=== PATIENT | female | born 1940 | race Caucasian/White ===

== ENCOUNTER 2017-06-06 16:36 | Emergency (ER) | payer MEDICARE, OTHER ==
[2015-12-06 15:19] VITALS: BMI 27.3
[~2017-06-06 16:36] MED LIST: BAYER CHEWABLE81 MG PO; BRILINTA90 MG PO; ESTROPIPATE0.75 MG PO; FISH OIL 1,0001 CA1 PO; MULTIPLE VITAMI1 TA1 PO; NORVASC5 MG PO; OCUVITE TABLET1 TA1 PO; PRAVASTATIN SOD10 MG PO; PRILOSEC10 MG PO; PROBIOTIC250 MG PO
[2017-06-06 17:13] LABS: BASOPHILS 0.3 % (0-2); EOSINOPHILS 1.5 % (0-7); HEMATOCRIT 37.5 % (36.0-48.0); HEMOGLOBIN 12.2 g/dL (12-16); IMMATURE GRANULOCYTES 0.2 % (0-5); MCH 29.5 pg (26.0-34.0); MCHC 32.5 g/dL (31.0-37.0); MCV 90.8 fL (80.0-100.0); MEAN PLATELET VOLUME 9.4 fL (7.4-10.4); MONOCYTES 8.7 % (2-11); NEUTROPHILS 58.3 % (40-80); PLATELET COUNT 204 10x3/uL (130-400); RBC 4.13 10x6/uL (4.00-5.40); WBC 5.8 10x3/uL (4.8-10.8)
[2017-06-06 17:41] LABS: ALBUMIN 3.5 g/dL (3.4-5.0); ALKALINE PHOSPHATASE 42 U/L (46-116); ALT (SGPT) 21 U/L (10-68); BILIRUBIN - TOTAL 0.42 mg/dL (0.2-1.3); CALC OSMOLALITY 275 mosm/kg (275-300); CALCIUM 9.1 mg/dL (8.5-10.1); CHLORIDE - SERUM 103 mmol/L (98-107); GLUCOSE 101 mg/dL (74-106); POTASSIUM - SERUM 3.9 mmol/L (3.5-5.1); PROTEIN - SERUM 7.3 g/dL (6.4-8.2); SODIUM 138 mmol/L (136-145); UREA NITROGEN 13 mg/dL (7-18); eGFR NON AFRICAN AMERICAN 57 mL/min (90-120)
[2017-06-06 17:52] LABS: CHOL - HDL RATIO 2.1 ratio (2.3-4.1); CHOLESTEROL, TOTAL 214 mg/dL (0-200); CKMB 1.3 U/L (0.0-3.6); CREATINE KINASE 122 UL (21-215); HDL CHOLESTEROL 101 mg/dL (32-96); LDL CHOLESTEROL 93 mg/dL (0-100); LDL-HDL RATIO 0.9 ratio (1.5-3.5); TRIGLYCERIDE 103 mg/dL (30-200)
[2017-06-06 17:57] LABS: TROPONIN-I < 0.017 ng/mL (0.000-0.060)
== END 2017-06-06 19:23 | disposition home or self-care (01) ==
LOC: D.ER 16:36
PROVIDERS: Family Medicine
DX: R07.89 Other chest pain (principal)

== ENCOUNTER 2018-01-12 11:23 | Emergency (ER) | payer MEDICARE, OTHER ==
[2015-12-06 15:19] VITALS: BMI 27.3
[2018-01-12 12:25] LABS: BASOPHILS 0.4 % (0-2); HEMATOCRIT 38.9 % (36.0-48.0); HEMOGLOBIN 12.9 g/dL (12-16); IMMATURE GRANULOCYTES 0.3 % (0-5); LYMPHOCYTES 23.6 % (15-50); MCHC 33.2 g/dL (31.0-37.0); MCV 90.5 fL (80.0-100.0); MEAN PLATELET VOLUME 9.8 fL (7.4-10.4); MONOCYTES 6.8 % (2-11); NEUTROPHILS 67.9 % (40-80); PLATELET COUNT 216 10x3/uL (130-400); RDW 13.6 % (11.5-14.5); WBC 7.2 10x3/uL (4.8-10.8)
[2018-01-12 12:41] LABS: ALBUMIN 3.6 g/dL (3.4-5.0); ALKALINE PHOSPHATASE 45 U/L (46-116); ALT (SGPT) 22 U/L (10-68); CALC OSMOLALITY 274 mosm/kg (275-300); CALCIUM 9.1 mg/dL (8.5-10.1); CARBON DIOXIDE 23.5 mmol/L (21.0-32.0); CHLORIDE - SERUM 104 mmol/L (98-107); CREATININE - SERUM 0.8 mg/dL (0.6-1.3); GLUCOSE 95 mg/dL (74-106); POTASSIUM - SERUM 4.2 mmol/L (3.5-5.1); PROTEIN - SERUM 7.5 g/dL (6.4-8.2); SODIUM 137 mmol/L (136-145); UREA NITROGEN 15 mg/dL (7-18); eGFR NON AFRICAN AMERICAN 74 mL/min (90-120)
[2018-01-12 12:45] LABS: CREATINE KINASE 78 UL (21-215); TROPONIN-I < 0.017 ng/mL (0.000-0.060)
== END 2018-01-12 13:26 | disposition home or self-care (01) ==
LOC: D.ER 11:23
PROVIDERS: Emergency Medicine
DX: R68.84 Jaw pain (principal); I10 Essential (primary) hypertension; R00.1 Bradycardia, unspecified

== ENCOUNTER 2018-10-02 18:36 | Observation (INO) | payer MEDICARE, OTHER ==
[~2018-10-02] VITALS: Ht 152.4 cm; Wt 65.5 kg
--- NOTE | ~2018-10-02 | HEMODYNAMI ---
PATIENT:KATY BURRIS MEDICAL RECORD: [id number] : 42 [id number] ADMISSION DATE: 10/02/18 Generatedon:10/03/201815:48 Patient name: KATY BURRIS Patient #: [id number] SSN: : 1940 Date of study: 10/03/2018 Page: Of Hemodynamic Procedure Report Patient Data Patient Demographics Procedure consent was obtained First Name: KATY Gender: Female Last Name: FATUMA : 1940 Middle Initial: S Age: 78 year(s) Patient #: [id number] Race: Additional ID: [id number] Contact details [address]: [address] [place] [address] State: [place] City: [place] Zip code: [address] Past Medical History Allergies Allergen Reaction Date Comments Reported Other allergy 12/07/2015 Tizanidine (Zanaflex) Other allergy 10/03/2018 Tizanidine Admission Admission Data Admission Date: 10/02/2018 Admission Time: 19:34 Admit Source: Other Room #: D.2124 Lab Results Lab Result Date: 10/03/2018 Lab Result Time: 4:15 Biochemistry Name Units Result Min Max BUN mg/dl 13 --(--*-)-- 7 18 Creatinine mg/dl 0.8 --(-*--)-- 0.6 1.3 CBC Name Units Result Min Max Hematocrit % 33.2 *-(----)-- 42 54 Hemoglobin g/dl 10.5 *-(----)-- 13.5 17.5 Procedure Procedure Types Cath Procedure Diagnostic Procedure [facility] w/Coronaries Sedation Charges Moderate Sedation up to 15 minutes Procedure Description Procedure Date Procedure Date: 10/03/2018 Procedure Start Time: 15:34 Procedure End Time: 15:47 Procedure Staff Name Function Justin Gonzales MD Performing Physician Vicente Barrno RT Monitor Lydia Lindsey RT Scrub Barb Ray RN Nurse Jose Larose RN Human Relations Manager Procedure Data Cath Procedure Fluoroscopy Diagnostic fluoroscopy Total fluoroscopy Time: 1.2 time: 1.2 min min Diagnostic fluoroscopy Total fluoroscopy dose: 313 dose: 313 mGy mGy Contrast Material Contrast Material Type Amount (ml) Isovue 300 46 Entry Location Entry Primary Successful Side Size Upsize Upsize Entry Closure Succes sful Closure Location (Fr) 1 (Fr) 2 (Fr) Remarks Device Remarks Femoral Right 5 Fr Exoseal artery Estimated blood loss: 5 ml Diagnostic catheters Device Type Used For End Catheter Placement MULTIPACK JL 4.0 5Fr Procedure catheter MULTIPACK 3DRC 5Fr Procedure catheter MULTIPACK Pigtail 5 Fr Procedure catheter Procedure Complications No complications Procedure Medications Medication Administration Route Dosage 0.9% NaCl I.V. 100 ml/hr Oxygen etCO2 Nasal cannula 2 l/min Lidocaine 2% added to field 20 Heparin Flush Bag added to field 2 bags (1000units/500ml NS) Versed I.V. 2 mg Fentanyl I.V. 50 mcg Versed I.V. 1 mg Fentanyl I.V. 25 mcg Hemodynamics Rest HGB: 10.5 (g/dl) Heart Rate: 57 (bpm) Pressure Samples Time Site Value (mmHg) Purpose Heart Use Rate(bpm) 15:42 LV 153/0,10 Snapshot 58 15:43 AO 159/63(100) Pullback 56 15:43 LV 166/-1,15 Pullback 56 Gradients Valve Time Site 1 Site 2 Mean SEP/DFP Peak To Heart Use (mmHg) (sec/min) Peak Rate (mmHg) (bpm) Aortic 15:43 LV AO 10 22 7 56 166/-1,15 159/63(100) Calculations Valve P-P Mean Valve Index Valve Source Name Gradient Area Flow (cm2) Aortic 7 10 7 10 Snapshots Pre Cath Intra NCS Post Cath Vital Signs Time Heart Resp SPO2 etCO2 NIBP (mmHg) Rhythm Pain Sedation Rate (ipm) (%) (mmHg) Status Level (bpm) 15:17:38 67 19 100 33.2 185/94(160) NSR 0 (11) 10(A) , No pain 15:22:06 57 13 99 30.8 159/74(131) NSR 0 (11) 10(A) , No pain 15:26:30 55 15 99 35 161/69(130) NSR 0 (11) 10(A) , No pain 15:30:58 56 13 99 29.8 152/68(114) NSR 0 (11) 9(A) , No pain 15:35:15 54 13 100 31.7 154/73(131) NSR 0 (11) 10(A) , No pain 15:40:22 56 10 100 34 155/70(122) NSR 0 (11) 9(A) , No pain 15:44:44 57 13 100 36.2 146/74(119) NSR 0 (11) 10(A) , No pain Medications Time Medication Route Dose Verified Delivered Reason Notes Eff ectiveness by by 15:16:33 0.9% NaCl I.V. 100 Justin Barb used for ml/hr Christian Ray counter top maker 15:16:39 Oxygen etCO2 2 Justin Barb used for Nasal l/min Christian Ray procedure cannula RN 15:16:44 Lidocaine 2% added 20ml Ujstin Justin for local to vial Christian Gonzales MD anesthetic field 15:16:49 Heparin Flush added 2 Justin Justin used for Bag to bags Christian Gonzales MD procedure (1000units/500ml field NS) 15:28:04 Versed I.V. 2 mg Justin Barb for Christian Ray sedation RN 15:28:11 Fentanyl I.V. 50 Justin Barb for mcg Christian Ray sedation RN 15:35:19 Versed I.V. 1 mg Justin Barb for Christian Ray sedation RN 15:35:24 Fentanyl I.V. 25 Justin Barb for mcg Christian Ray sedation optical scientist Log Time Note 14:54:51 Informed consent obtained and on chart 14:54:54 Admit Source: Other 14:55:16 Diagnostic Cath status Elective 14:55:17 Time tracking: Regular hours (M-F 7:00 - 5:00) 14:55:20 Plan of Care:Hemodynamics will remain stable., Cardiac rhythm will remain stable., Comfort level will be maintained., Respiratory function will remain adequate., Patient/ family verbilizes understanding of procedure., Procedure tolerated without complication., Recovers from procedure without complications.. 14:59:14 Jose Larose RN sent for patient. Start room use. 15:10:14 Patient received from [employer] II to CCL 1 Alert and oriented. Tansferred to table in Supine position. 15:10:16 Warm blankets applied, and nolberto hugger turned on for patient comfort. 15:10:16 Correct patient and procedure confirmed by team. 15:10:17 ECG and BP/O2 sat monitors applied to patient. 15:10:19 Pre-procedure instructions explained to patient. 15:10:19 Pre-op teaching completed and patient verbalized understanding. 15:10:20 Family in waiting room. 15:10:22 Patient NPO since Midnight. 15:16:23 Vital chart was started 15:16:33 0.9% NaCl 100 ml/hr I.V. was administered by Barb Ray RN; used for procedure; 15:16:39 Oxygen 2 l/min etCO2 Nasal cannula was administered by Barb Ray RN; used for procedure; 15:16:44 Lidocaine 2% 20ml vial added to field was administered by Justin Gonzales MD; for local anesthetic; 15:16:49 Heparin Flush Bag (1000units/500ml NS) 2 bags added to field was administered by Justin Gonzales MD; used for procedure; 15:20:31 Patient allergic to Other allergyTizanidine 15:20:33 Is the patient allergic to Iodine/contrast media? No. 15:20:34 Is patient on blood thinner?No 15:20:36 Patient diabetic? No. 15:20:38 Previous problem with sedation/anesthesia? No ? 15:20:39 Snore? Yes 15:20:40 Sleep apnea? No 15:20:41 Deviated septum? No 15:20:42 Opens mouth fully? Yes 15:20:42 Sticks out tongue? Yes 15:20:44 Airway obstruction? No ? 15:20:45 Dentures? No ? 15:20:48 Pre procedure: right dorsailis pedis pulse 2+ Normal; easily identifiable; not easily obliterated 15:20:49 Patient pain scale 0/10 ?. 15:20:54 IV patent on arrival in left forearm with 0.9% NaCl at [facility]. 15:23:52 Lab Result : BUN 13 mg/dl 15::52 Lab Result : Creatinine 0.8 mg/dl 15::52 Lab Result : Hemoglobin 10.5 g/dl 15::52 Lab Result : Hematocrit 33.2 % 15:23:55 Lab results completed and on chart. 15:23:59 Right groin area was prepped with chlora-prep and draped in sterile fashion 15:24:10 Alarms reviewed by R. N. 15:24:13 Sharps counted by scrub and verified by R.N. 15:24:15 Use device set Femoral Dx 15:24:16 ACIST Syringe (55959) opened to sterile field. 15:24:16 Bag Decanter (2002S) opened to sterile field. 15:24:18 ACIST Hand Control (91623) opened to sterile field. 15:24:18 ACIST Manifold (62962) opened to sterile field. 15:24:19 Tegaderm 4 x 4 (1626W) opened to sterile field. 15:24:20 SHEATH 5FR Glidden (ETU655) opened to sterile field. 15:24:20 DIAGNOSTIC Multipack 5Fr catheter set (OB0317) opened to sterile field. 15:24:21 Medline Cath Pack ([id number]) opened to sterile field. 15:24:22 DIAGNOSTIC WIRE .035 260cm J wire (416217) opened to sterile field. 15:24:30 Baseline sample Acquired. 15:24:33 Rhythm: sinus rhythm 15:24:35 Full Disclosure recording started 15:24:48 H&P Date Dictated: 10/03/2018 Within 30 days and on chart., H&P Addendum completed by physician on day of procedure. (MUST COMPLETE FOR ALL OUTPATIENTS). 15:27:04 Physician arrived 15:27:04 --------ALL STOP TIME OUT------ 15:27:05 Final Timeout: patient, procedure, and site verified with staff and physician. All members of the team are in agreement. 15:27:06 Right groin site verified by team. 15:27:10 Physical assessment completed. ASA score P 2 - A patient with mild systemic disease as per Justin Gonzales MD. 15:27:14 Sedation plan: IV Moderate Sedation Medication:Versed, Fentanyl 15:28:04 Versed 2 mg I.V. was administered by Barb Ray RN; for sedation; 15:28:11 Fentanyl 50 mcg I.V. was administered by Barb Ray RN; for sedation; 15:34:51 Procedure started. 15:34:54 Local anesthetic to right femoral artery with Lidocaine 2% by Justin Gonzales MD.INITIAL ACCESS ONLY 15:35:19 Versed 1 mg I.V. was administered by Barb Ray RN; for sedation; 15:35:24 Fentanyl 25 mcg I.V. was administered by Barb Ray RN; for sedation; 15:36:08 A 5 Fr sheath was inserted into the Right Femoral artery 15:36:15 A MULTIPACK JL 4.0 5Fr catheter was advanced over the wire and used for Procedure. 15:36:59 LCA angiography performed. 15:40:07 Catheter exchanged over wire. 15:40:11 A MULTIPACK 3DRC 5Fr catheter was advanced over the wire and used for Procedure. 15:41:15 RCA angiography performed. 15:41:33 Catheter exchanged over wire. 15:41:37 A MULTIPACK Pigtail 5 Fr catheter was advanced over the wire and used for Procedure. 15:42:46 LV gram done using YOUNGBLOOD 15:42:49 Injector settings: Ml/sec: 10, Volume: 20, 15:42:51 LV hemodynamics recorded. 15:42:55 EF : 50 % 15:43:22 Catheter removed. 15:43:23 EXOSEAL 5Fr (EX500) opened to sterile field. 15:44:18 Sheath removed intact; hemostasis achieved with Exoseal to the Right Femoral artery. 15:44:19 Procedure ended.(Physican Out) 15:44:47 Fluoroscopy time 01.20 minutes. 15:44:51 Fluoroscopy dose: 313 mGy 15:44:51 Flurop Dose total: 313 15:44:54 Contrast amount:Isovue 300 46ml. 15:44:56 Sharps counted by scrub and verified by R.N. 15:44:58 Insertion/operative site no bleeding no hematoma. 15:45:00 Post-op/insertion site Right Femoral artery dressed using a 4 x 4 and Tegaderm. 15:45:03 Post right femoral artery:stable, soft, clean and dry 15:45:04 Post Procedure Pulses reassessed and unchanged 15:45:06 Post-procedure physical assessment completed. ASA score P 2 - A patient with mild systemic disease as per Justin Gonzales MD. 15:45:08 Post procedure rhythm: unchanged. 15:45:17 Estimated blood loss: 5 ml 15:45:19 Post procedure instruction explained to patient.Patient verbalizes understanding. 15:45:20 Patient needs reinforcement of post procedure teaching. 15:45:31 Procedure type changed to Cath procedure, Diagnostic procedure, LHC, LHC w/Coronaries, Sedation Charges, Moderate Sedation up to 15 minutes 15:46:48 Procedure and supply charges have been captured, reviewed, submitted and are correct. 15:46:50 Procedure Complication : No complications 15:46:52 Vital chart was stopped 15:46:52 See physician's report for complete and final results. 15:46:55 Report given to Med II. 15:47:08 Patient transfered to PCU with Stretcher. 15:47:09 Procedure ended. 15:47:09 Full Disclosure recording stopped 15:47:13 End room use (Document Last) Device Usage Item Name Manufacture Quantity Catalog Hospital Part Current Minimal L ot# / Number Charge Number Stock Stock Serial# Code ACIST Acist 1 64357 [id number] 847581 695000 20 Syringe Medical (42896) Systems Inc Bag Microtek 1 2001S 507396 03968 564800 5 Decanter Medical Inc. () ACIST Hand Acist 1 18184 125970 218135 157694 5 Control Medical (20646) Systems Inc ACIST Acist 1 46478 339925 227461 631951 5 Manifold Medical (31267) Systems Inc Tegaderm 4 3M 1 1626W 395940 887703 661009 5 x 4 (1626W) SHEATH 5FR Terumo 1 [id number] 167418 900128 967113 5 Glidden (VLN342) DIAGNOSTIC Cardinal 1 GH0194 570660 59708 515511 30 Multipack Health 5Fr catheter set (RF4396) Medline Medline 1 [id number] 236202 19017 488087 5 Cath Pack ([id number]) DIAGNOSTIC [facility] 1 406205 937499 476701 362872 30 WIRE .035 260cm J wire (342742) MULTIPACK Cardinal 1 666699 5 JL 4.0 5Fr Health catheter MULTIPACK Cardinal 1 107965 5 3DRC 5Fr Health catheter MULTIPACK Cardinal 1 205064 5 Pigtail 5 Health Fr catheter EXOSEAL 5Fr Cardinal 1 EX500 706002 381723 217595 10 (EX500) Health Signature Audit [place] Stage Time Signature Unsigned Intra-Procedure 10/03/2018 Vicente Barron 3:47:55 PM RT(R) Signatures Monitor : Vicente Barron RT Signature : Date : Time : [place] [id number] [facility] [place] [address]
[2018-10-02] MEDS ORDERED: ESTRACE1 MG PO (18:44)
[2018-10-02] MEDS ORDERED: LOPRESSOR25 MG PO (18:44)
[2018-10-02 19:13] LABS: BASOPHILS 0.5 % (0-2); EOSINOPHILS 4.4 % (0-7); HEMATOCRIT 36.5 % (36.0-48.0); HEMOGLOBIN 11.5 g/dL (12-16); IMMATURE GRANULOCYTES 0.2 % (0-5); LYMPHOCYTES 36.7 % (15-50); MCH 27.5 pg (26.0-34.0); MCHC 31.5 g/dL (31.0-37.0); MCV 87.3 fL (80.0-100.0); MEAN PLATELET VOLUME 9.7 fL (7.4-10.4); MONOCYTES 6.7 % (2-11); NEUTROPHILS 51.5 % (40-80); PLATELET COUNT 218 10x3/uL (130-400); RBC 4.18 10x6/uL (4.00-5.40); RDW 14.6 % (11.5-14.5); WBC 6.5 10x3/uL (4.8-10.8)
[2018-10-02 19:20] VITALS: BP 190/85
[2018-10-02 19:30] VITALS: BP 175/83
[2018-10-02 19:34] LABS: ALBUMIN 3.3 g/dL (3.4-5.0); ALKALINE PHOSPHATASE 61 U/L (46-116); ALT (SGPT) 23 U/L (10-68); BILIRUBIN - TOTAL 0.26 mg/dL (0.2-1.3); CALC OSMOLALITY 278 mosm/kg (275-300); CALCIUM 8.5 mg/dL (8.5-10.1); CARBON DIOXIDE 24.3 mmol/L (21.0-32.0); CHLORIDE - SERUM 103 mmol/L (98-107); CREATININE - SERUM 0.8 mg/dL (0.6-1.3); GLUCOSE 113 mg/dL (74-106); POTASSIUM - SERUM 3.8 mmol/L (3.5-5.1); PROTEIN - SERUM 7.4 g/dL (6.4-8.2); SODIUM 139 mmol/L (136-145); UREA NITROGEN 12 mg/dL (7-18); eGFR NON AFRICAN AMERICAN 74 mL/min (90-120)
[2018-10-02 19:47] VITALS: BP 173/77
[2018-10-02 19:47] LABS: CKMB 0.6 U/L (0.0-3.6); CREATINE KINASE 69 UL (21-215)
[2018-10-02 19:49] LABS: TROPONIN-I < 0.017 ng/mL (0.000-0.060)
--- NOTE | 2018-10-02 20:30 | NUR ---
PT TO ROOM VIA BED ACCOMPANIED BY HOSPITAL STAFF AND SPOUSE. A/0 X4, DENIES ANY PAIN OR CHEST DISCOMFORT AT THIS TIME. ADMISSION ASSESSMENT, HISTORY, AND MED REC COMPLETED AT THIS TIME. L AC 20G IV PATENT, NO C/O PAIN/DISCOMFORT AT SITE. RR EVEN AND UL, NO S/S OF DISTRESS. VSS. WCTM AND FOLLOW POC. CL IN REACH, SR UP X2, BED IN LOWEST POSITION, AT BEDSIDE.
[2018-10-02 21:03] VITALS: BP 134/65
[2018-10-02 23:16] VITALS: BP 134/65; BMI 26.4
[2018-10-03 00:31] VITALS: BP 130/69
--- NOTE | 2018-10-03 03:30 | NUR ---
RESUMING PT CARE - PT A/O X4, BP 138/76, HR 56. PT HAS NO C/O PAIN/DISCOMFORT AT THIS TIME. ADMINISTERED ANTIHYPERTENSIVE MEDICATION. WCTM. SR UP X2, CL IN REACH, BED IN LOWEST POSITION. NO FURTHER NEEDS NOTED AT THIS TIME.
[2018-10-03 03:55] VITALS: BP 138/76
[2018-10-03 04:46] LABS: BASOPHILS 0.5 % (0-2); EOSINOPHILS 3.6 % (0-7); HEMATOCRIT 33.2 % (36.0-48.0); HEMOGLOBIN 10.5 g/dL (12-16); IMMATURE GRANULOCYTES 0.4 % (0-5); LYMPHOCYTES 39.3 % (15-50); MCH 27.3 pg (26.0-34.0); MCHC 31.6 g/dL (31.0-37.0); MCV 86.5 fL (80.0-100.0); MEAN PLATELET VOLUME 9.9 fL (7.4-10.4); MONOCYTES 7.6 % (2-11); NEUTROPHILS 48.6 % (40-80); PLATELET COUNT 209 10x3/uL (130-400); RBC 3.84 10x6/uL (4.00-5.40); RDW 14.5 % (11.5-14.5); WBC 5.5 10x3/uL (4.8-10.8)
[2018-10-03 05:13] LABS: ALBUMIN 2.8 g/dL (3.4-5.0); ALKALINE PHOSPHATASE 35 U/L (46-116); ALT (SGPT) 19 U/L (10-68); BILIRUBIN - TOTAL 0.28 mg/dL (0.2-1.3); CALC OSMOLALITY 279 mosm/kg (275-300); CALCIUM 8.2 mg/dL (8.5-10.1); CARBON DIOXIDE 25.5 mmol/L (21.0-32.0); CHLORIDE - SERUM 107 mmol/L (98-107); CREATININE - SERUM 0.8 mg/dL (0.6-1.3); GLUCOSE 86 mg/dL (74-106); POTASSIUM - SERUM 3.7 mmol/L (3.5-5.1); PROTEIN - SERUM 6.2 g/dL (6.4-8.2); SODIUM 141 mmol/L (136-145); TROPONIN-I < 0.017 ng/mL (0.000-0.060); UREA NITROGEN 13 mg/dL (7-18); eGFR NON AFRICAN AMERICAN 74 mL/min (90-120)
[2018-10-03 08:35] VITALS: BP 142/67
--- NOTE | 2018-10-03 11:30 | NUR ---
CONSENTS OBTAINED AND PLACED IN CHART. PT WAITING QUIETLY AND NPO FOR CATH PROCEDURE. CL IN REACH, BED IN LOWEST, SIDE RAILS X2. WILL CTM.
[2018-10-03 11:36] VITALS: BP 129/68
[2018-10-03 13:49] VITALS: Ht 152.4 cm; Wt 65.5 kg
--- NOTE | 2018-10-03 15:08 | NUR ---
CREDIT OR LOANS OFFICER CALLED TO PRE-OP PT. PRE-OP MEDICATIONS GIVEN WITH EXCEPTION OF VALIUM AND NITRO PATCH CATH TEAM IS HERE TO TAKE PT NOW. REMOVED TELEMETRY AND PT IS COMPLETELY READY TO GO. PT LEAVING UNIT NOW. WILL CTM.
--- NOTE | 2018-10-03 16:00 | NUR ---
PT BACK FROM SPLICING SUPERVISOR AWAKE BUT VERY TIRED AND DROWSY. VSS AND BEING MONITERED PER POST PROCEDURE POLICY. PERIPHERAL PULSES INTACT. PT HAS A KING DRSG THAT IS CDI NO S/S OF HEMATOMA OR BLEEDING NOTED. FAMILY AT BEDSIDE AND GOING OVER RESULTS. NO FURTHER NEEDS AT THIS TIME. WILL CONNECT TELEMETRY AND CPOC.
--- NOTE | 2018-10-03 16:36 | NUR ---
CONNECTED NS TO PIV ORDERED. PT REMAINS LYING FLAT IN BED WITH EYES CLOSED. VSS AND STILL BEING MONITERED. KING LEOG REMAINS CDI NO S/S OF BLEEDING OR HEMATOMA NOTED. NO CURRENT NEEDS. WILL CTM.
--- NOTE | 2018-10-03 16:56 | NUR ---
KING LEOG REMAINS CDI. NO S/S OF BLEEDING OR HEMATOMA NOTED. VSS AND BEING MONITERED PER POST PROCEDURE PROTOCOL. NO FURTHER NEEDS AT THIS TIME. PT RESTING QUIETLY. WILL CTM.
--- NOTE | 2018-10-03 17:45 | NUR ---
PTS 2 HOUR LAY IS COMPLETED. HOWEVER SHE REMAINS VERY SLEEPY AND IS NOT WANTING TO EAT OR SIT UP YET. WILL ALLOW HER TO REST. VSS. KING HALL REMAINS CDI NO S/S OF BLEEDING OR HEMATOMA. WILL CPOC.
--- NOTE | 2018-10-03 19:25 | NUR ---
ASSESSMENT COMPLETE, PT A&O. RESPERATIONS UNLAOBRED ON O2 AT 2 LITERS VIA NC. IV TO LEFT AC WITH NS INFUSING AT 100 CC/HR. SITE CLEAN AND DRY. DRSG TO RIGHT GROIN C/D/I. NO SWELLING, BLEEDING OR HEMATOMA NOTED. PT DENIES PAIN OR NEEDS, BED LOW, CL IN REACH. AT BED SIDE.
[2018-10-03 21:11] VITALS: BP 164/86
[2018-10-04 00:15] VITALS: BP 112/66
[2018-10-04 05:52] VITALS: BP 120/61
--- NOTE | 2018-10-04 08:00 | NUR ---
AM ROUNDS COMPLETED. INTRODUCED MYSELF TO PT PRIMARY RN FOR TODAYS SHIFT. PT IS A&O SITTING UP IN BED EATING BREAKFAST. SHIFT ASSESSMENT COMPLETED. PT STATES SHE HAD A GOOD NIGHT AND IS READY TO GO HOME TODAY. PT STAYED OVERNIGHT TO MONITER BP AND MAKE SURE NEW MEDICATION WAS WORKING AND VSS. AT BEDSIDE AND STATES HE WILL CONTINUE THE NEW MEDICATION AND LET PT BE DISCHARGED. WILL BEGIN DISCHARGE WORKUP. NO FURTHER NEEDS AT THIS TIME.
[2018-10-04 08:22] VITALS: BP 137/66
[2018-10-04] MEDS ORDERED: NORMODYNE / TR300 MG PO (08:56)
[2018-10-04 11:26] VITALS: BP 111/54
--- NOTE | 2018-10-04 13:40 | NUR ---
D/C TEACHING PROVIDED AND PAPERS SIGNED. PT VERBALIZED UNDERSTANDING AND DENIES ANY QUESTIONS OR CONCERNS. D/C PTS PIV WITH CATHETER TIP FULLY INTACT AND D/C TELEMETRY AND RETURNED TO [facility]. ALL BELONGINGS COLLECTED AND SENT WITH . PT IS COMPLETELY READY TO GO. WILL CALL W/C FOR ESCORT.
--- NOTE | 2018-10-05 08:23 | MORECARE ---
CASE MANAGEMENT DISCHARGE SUMMARY PATIENT: KATY BURRIS UNIT: [id number] ADM DATE: 10/02/18 AGE: 78 : 41 SEX: F ROOM/BED: D.7638 AUTHOR: SANJAY GOODSON PHYSICIAN: REFERRING PHYSICIAN: LINWOOD VALDES MD DATE OF SERVICE: 10/05/18 Discharge Plan Patient Name: KATY BURRIS [facility] [facility] 1940 Planned Disposition: Home Anticipated Discharge Date: 10/04/18 Discharge Date: 10/04/2018 Expected LOS: 2 Initial Reviewer: [email or web address] Initial Review Date: 10/05/2018 Generated: 10/05/18 9:23 am Patient Name: KATY BURRIS Page [id number] at 0823 All edits/amendments must be made on the electronic document DICTATION DATE: 10/05/18821 MESS COOK: DM 10/05/18821 RPT#: [id number] DC DATE:10/04/18 STATUS: DIS IN [facility] [address] [place] [address] END OF REPORT
== END 2018-10-04 13:55 | disposition home or self-care (01) ==
LOC: D.ER 18:36 → D.M2 19:34 → OBSVTIME 19:34 → D.M2 10-04 13:55
PROVIDERS: Family Medicine; ADMIT Internal Medicine Interventional Cardiology
DX: I25.110 Atherosclerotic heart disease of native coronary artery with unstable angina pectoris (principal); I16.0 Hypertensive urgency; K21.9 Gastro-esophageal reflux disease without esophagitis; E78.5 Hyperlipidemia, unspecified; Z87.891 Personal history of nicotine dependence

== ENCOUNTER → 2018-12-10 08:25 | Outpatient (CLI) | payer MEDICARE, OTHER ==
[2018-10-03 13:49] VITALS: BMI 27.0
[~2018-12-10 08:25] MED LIST changes: +ESTRACE1 MG PO; +LOPRESSOR25 MG PO; +NORMODYNE / TR300 MG PO
== END | disposition home or self-care (01) ==
LOC: D.HCCARDIO 11-20 09:00
PROVIDERS: ATTEND Internal Medicine Cardiovascular Disease
DX: I25.110 Atherosclerotic heart disease of native coronary artery with unstable angina pectoris (principal)

== ENCOUNTER 2019-06-13 02:28 | Observation (INO) | payer MEDICARE, OTHER ==
[~2019-06-13] VITALS: Ht 152.4 cm; Wt 61.8 kg
[~2019-06-13 02:28] MED LIST changes: +OMEPRAZOLE20 M1 PO; -PRILOSEC10 MG PO
[2019-06-13 02:54] VITALS: BP 199/90
[2019-06-13 03:13] LABS: BASOPHILS 0.3 % (0-2); EOSINOPHILS 3.1 % (0-7); HEMATOCRIT 35.2 % (36.0-48.0); HEMOGLOBIN 11.4 g/dL (12-16); IMMATURE GRANULOCYTES 0.2 % (0-5); LYMPHOCYTES 35.8 % (15-50); MCH 29.8 pg (26.0-34.0); MCHC 32.4 g/dL (31.0-37.0); MCV 91.9 fL (80.0-100.0); MEAN PLATELET VOLUME 9.6 fL (7.4-10.4); MONOCYTES 8.7 % (2-11); NEUTROPHILS 51.9 % (40-80); PLATELET COUNT 205 10x3/uL (130-400); RBC 3.83 10x6/uL (4.00-5.40); RDW 13.3 % (11.5-14.5); WBC 5.8 10x3/uL (4.8-10.8)
[2019-06-13 03:26] LABS: APTT 25.9 SECONDS (22.8-39.4); INR 1.04 (0.85-1.17); PROTIME 13.1 SECONDS (11.6-15.0)
[2019-06-13 03:27] LABS: ALBUMIN 3.4 g/dL (3.4-5.0); ALKALINE PHOSPHATASE 47 U/L (46-116); ALT (SGPT) 24 U/L (10-68); BILIRUBIN - TOTAL 0.28 mg/dL (0.2-1.3); CALC OSMOLALITY 284 mosm/kg (275-300); CALCIUM 8.3 mg/dL (8.5-10.1); CARBON DIOXIDE 26.9 mmol/L (21.0-32.0); CHLORIDE - SERUM 105 mmol/L (98-107); GLUCOSE 91 mg/dL (74-106); POTASSIUM - SERUM 4.1 mmol/L (3.5-5.1); SODIUM 142 mmol/L (136-145); UREA NITROGEN 19 mg/dL (7-18); eGFR NON AFRICAN AMERICAN 57 mL/min (90-120)
[2019-06-13 03:36] LABS: CKMB 1.8 U/L (0.0-3.6); CREATINE KINASE 114 UL (21-215); MAGNESIUM - SERUM 1.6 mg/dL (1.8-2.4)
[2019-06-13 03:39] LABS: TROPONIN-I < 0.017 ng/mL (0.000-0.060)
[2019-06-13 04:30] VITALS: BP 118/63
[2019-06-13 04:44] VITALS: BP 158/76; BMI 26.6
--- NOTE | 2019-06-13 07:44 | NUR ---
REPORT RECIEVED. PT SITTING UP IN BED, SHE HAS A L FA PIV THAT IS SL. RR EVEN AND UNLABORED. NO DISTRESS NOTED. DISCUSSED NPO STATUS DUE TO WAITING ON A CARDIO CONSULT THIS MORNING. BED LOCKED AND IN LOWEST POSITION. CALL LIGHT WITHIN REACH. WILL CTM
[2019-06-13 07:50] VITALS: Ht 152.4 cm; Wt 61.8 kg
[2019-06-13 08:55] VITALS: BP 124/73
[2019-06-13 09:50] LABS: CKMB 1.4 U/L (0.0-3.6); CREATINE KINASE 117 UL (21-215); TROPONIN-I < 0.017 ng/mL (0.000-0.060)
--- NOTE | 2019-06-13 10:19 | NUR ---
I have reviewed this patient and I concur with the Shift Assessment completed by the Licensed Practical Nurse today this shift.
[2019-06-13 11:47] LABS: % SATURATION 12 % (15-55); IRON 42 ug/dl (35-150); TOTAL IRON BIND CAPACITY 327 ug/dl (260-445); UNSAT IRON BIND CAPACITY 285 ug/dl (150-375)
--- NOTE | 2019-06-13 13:31 | CN ---
PATIENT NAME:KATY BORREGO MEDICAL RECORD: [id number] : 42 LOCATION:D. D.2126 ADMIT DATE: 06/13/19 ACCOUNT: [id number] CONSULTING PHYSICIAN: LINWOOD VALDES MD REFERRING PHYSICIAN: JEFFERSON CRUZ MD DATE OF CONSULTATION: 06/13/2019 CARDIOLOGY CONSULT ADMITTING DIAGNOSES: 1. Angina. 2. Coronary artery disease. 3. Previous percutaneous transluminal coronary angioplasty stent. 4. Shortness of breath, dyspnea on exertion. 5. Hypertension. HISTORY OF PRESENT ILLNESS: Mrs. Borrego presents with chest pain. The chest pain just started yesterday evening. She has noted for the past week that she has been more short of breath and dyspneic. She does have a history of cardiac stents approximately 3 years ago. The chest pain she is having now is just like that of the previous stent. She has had multiple episodes of the chest pain throughout the evening. Her EKG; however, is normal. Her troponin is normal as well. PHYSICAL EXAMINATION: CONSTITUTIONAL/GENERAL APPEARANCE: Well nourished, well developed, appears stated age. EYES: Lids and conjunctivae noninjected. No discharge. No pallor. ENT: Lips within normal limit. No cyanosis. No pallor. NECK: Carotid arteries, bilateral normal upstroke. No bruits. No thrills. No jugular venous pressure or distention. CERVICAL LYMPH NODES: Nontender. Nonenlarged. THYROID: Not enlarged. No nodules. CARDIOVASCULAR: Precordial exam, nondisplaced. No heaves or pericardial thrills. Rate and rhythm, regular. Heart sounds, normal S1, normal S2. No S3, no gallop, no rub. Systolic murmur, not heard. Diastolic murmur, not heard. RESPIRATORY: Respiratory effort, unlabored. Normal curvature. No thoracic deformity. No chest wall tenderness. Percussion, resonant. Auscultation, clear. No wheezes, no rales, no rhonchi. ABDOMEN: Soft, nondistended, nontender. No abdominal pain, no vomiting and normal appetite. MUSCULOSKELETAL: No joint tenderness, normal gait, normal tone. SKIN: Warm and dry. OVERALL IMPRESSION: Chest pain compatible with angina just like that of her previous angina, it is a dull aching pressure-like sensation in the anterior chest area radiating to the left arm associated with shortness of breath and dyspnea on exertion, however, objectively everything is normal. Her blood pressure is not under good control. She is on labetalol for blood pressure only. She is bradycardic. We will add Norvasc as well as long-acting nitrates. Risk stratify with stress testing Cardiolite imaging. TRANSINT:[id number] Voice Confirmation ID: [id number] DOCUMENT ID: [id number] CONSULT REPORT [id number] KATY BORREGO JEFFREY MD at 1331 CC: [id number] DICTATION DATE: 06/13/19 0752 BUSINESS ARCHITECT: 06/13/19 1009 ADM IN [place] [address] [place] [address]
[2019-06-13 15:41] VITALS: BP 120/70
[2019-06-13] MEDS ORDERED: NORVASC10 MG PO (15:55)
--- NOTE | 2019-06-13 17:24 | NUR ---
DC PAPERWORK GONE OVER AND SIGNED WITH PT. ALL QUESTIONS ANSWERED. PIV REMOVED, CATH TIP FULLY INTACT. TELEMETRY REMOVED AND RETURNED TO INTERNATIONAL ACCOUNT REPRESENTATIVE. ALL VALUBLES REMOVED FROM ROOM AND PT TAKING DOWNSTAIRS VIA WHEELCHAIR WITH .
--- NOTE | 2019-06-13 17:27 | MORECARE ---
CASE MANAGEMENT DISCHARGE SUMMARY PATIENT: KATY BURRIS UNIT: [id number] ADM DATE: 06/13/19 AGE: 79 : 41 SEX: F ROOM/BED: D.1426 AUTHOR: SANJAY GOODSON PHYSICIAN: REFERRING PHYSICIAN: JEFFERSON CRUZ MD DATE OF SERVICE: 06/13/19 Discharge Plan Patient Name: KATY BURRIS Facility: [facility]:[place] : 1940 Planned Disposition: Home Anticipated Discharge Date: 06/13/19 Discharge Date: 06/13/2019 Expected LOS: 1 Initial Reviewer: [email or web address] Initial Review Date: 06/13/2019 Generated: 06/13/19 6:27 pm Patient Name: KATY BURRIS Page [phone] at 1727 All edits/amendments must be made on the electronic document DICTATION DATE: 06/13/191726 APPLIANCE TECHNICIAN: [place] 06/13/191726 RPT#: [id number] DC DATE:06/13/19 STATUS: DIS IN [facility] [address] [place] [address] END OF REPORT
--- NOTE | 2019-06-17 11:10 | ST ---
PATIENT:KATY BURRIS MEDICAL RECORD: [id number] SEX: F LOCATION:[facility] D212 ORDER #: ADMISSION DATE: 06/13/19 AGE OF PATIENT: 79 REFERRING PHYSICIAN: INTERPRETING PHYSICIAN: LINWOOD VALDES MD DATE OF SERVICE: 06/13/2019 PROCEDURE: Nuclear stress test. INDICATIONS: Chest pain, coronary artery disease. She was exercised on standard Matthew protocol with 32 mCi of sestamibi injected at peak stress, 11 mCi used previously for rest images. FINDINGS: Gated SPECT reveals preserved ejection fraction at 81% with good wall motion and thickening and brightening throughout all segments. SPECT Imaging: Cardiolite was used as myocardial fusion agent. There is homogeneous uptake throughout all segments at rest and stress with no evidence of inducible ischemia or previous infarction. OVERALL IMPRESSION: 1. This is a normal nuclear stress test with no evidence of inducible ischemia or previous infarction. 2. Gated SPECT reveals a preserved ejection fraction at 81%. In this patient with ongoing symptomatology, the current scan does not suggest the presence of hemodynamically significant coronary artery disease. Evaluate noncardiac etiology of chest pain. TRANSINT:[id number] Voice Confirmation ID: [id number] DOCUMENT ID: [id number] LINWOOD VALDES MD at 1110 CC: [id number] DICTATION DATE: 06/13/19 1421 SIGN SHOP SUPERVISOR: 06/14/19 0650 DIS IN 06/13/19 [facility] [address] [place] [address]
--- NOTE | 2019-06-17 11:10 | EC ---
PATIENT:KATY BURRIS DATE OF SERVICE: 06/13/19 SEX: F MEDICAL RECORD: [id number] DATE OF : 42 LOCATION:[address] AGE OF PATIENT: 79 ADMISSION DATE: 06/13/19 REFERRING PHYSICIAN: INTERPRETING PHYSICIAN: LINWOOD SUTTON MD ECHOCARDIOGRAM REPORT ECHO CHARGES 4 ECHO COMPLETE Date: 06/13/19 CLINICAL DIAGNOSIS: SOB ECHOCARDIOGRAPHIC MEASUREMENTS (adult normal given) AC root (d.<3.7cm) 2.8 cm LV Septum d (<1.2 cm> 1.3 cm Valve Excursion 2.1 cm LV Septum (systole) 1.6 cm Left Atria (s.<4.0cm> 3.5 cm LVPW d(<1.2cm) 1.2 cm RV (d.<2.3cm) 2.1 cm LVPW (sytole) 1.9 cm LV diastole(<5.6CM) 4.8 cm MV E-F(>70mm/sec) cm LV systole 3.1 cm LVOT Diameter 1.7 cm MV exc.(>10mm) cm Est.ejection fraction (50-75%) % DOPPLER: LVIT cm/sec A 111 cm/sec E 76.0 cm/sec LA cm/sec RVSP 25.2 mmHg LVOT 110 cm/sec AOP1/2T m/s Asc. Ao 132 cm/sec RVOT 78.0 cm/sec RA cm/sec PA 85.0 cm/sec AV Gradient Peak 7.0 mmHg AV Mean 3.7 mmHg AV Area 2.3 cm MV Gradient Peak 7.2 mmHg MV Mean 1.9 mmHg MV Area cm COMMENTS: Hospital Sales Representative: Latonya FORRESTEROE Firm Administrator: 1 Dr. Sutton TAPE# PACS Pericardial Effusion N DATE OF SERVICE: 06/13/2019 DATE OF SERVICE: 06/13/2019 FINDINGS: 1. Left ventricular chamber size is within normal limits. Left ventricular systolic function is normal at 60%. 2. Left atrium, right atrium, and right ventricle chamber sizes are within normal limits. 3. Valvular structures have normal structure and motion. ECHOCARDIOGRAM REPORT [id number] KATY BURIRS 4. Doppler interrogation reveals [id number] aortic insufficiency, [id number]-[id number] mitral regurgitation, [id number]-[id number] tricuspid regurgitation. No other valvular insufficiency or stenosis. Pulmonary systolic pressure is normal estimated at 25 mmHg. 5. No evidence of pericardial effusion or left ventricular thrombus. TRANSINT:[id number] Voice Confirmation ID: [id number] DOCUMENT ID: [id number] LINWOOD SUTTON MD at 1110 CC: [id number] DICTATION DATE: 06/14/19 0937 WOUND/OSTOMY NURSE: 06/14/19 1046 DIS IN 06/13/19 [facility] [address] [id number]
== END 2019-06-13 17:26 | disposition home or self-care (01) ==
LOC: D.ER 02:28 → OBSVTIME 04:00 → D.M2 04:00
PROVIDERS: Family Medicine; ADMIT Internal Medicine Nephrology; ATTEND Internal Medicine Nephrology
DX: I25.110 Atherosclerotic heart disease of native coronary artery with unstable angina pectoris (principal); R06.02 Shortness of breath; D50.9 Iron deficiency anemia, unspecified; N17.9 Acute kidney failure, unspecified; E83.42 Hypomagnesemia; I10 Essential (primary) hypertension; E78.5 Hyperlipidemia, unspecified; K21.9 Gastro-esophageal reflux disease without esophagitis

== ENCOUNTER 2019-09-28 07:58 | Outpatient (CLI) | payer MEDICARE, OTHER ==
[~2019-09-28] VITALS: Ht 152.4 cm; Wt 68.2 kg
[~2019-09-28 07:58] MED LIST changes: +NORVASC10 MG PO
--- NOTE | 2019-09-28 08:06 | NUR ---
PT NOT IN ROOM AND IS STILL IN TRIAGE
[2019-09-28 08:27] LABS: BASOPHILS 0.7 % (0-2); EOSINOPHILS 3.1 % (0-7); HEMATOCRIT 35.9 % (36.0-48.0); HEMOGLOBIN 11.5 g/dL (12-16); IMMATURE GRANULOCYTES 0.2 % (0-5); LYMPHOCYTES 30.8 % (15-50); MCH 29.6 pg (26.0-34.0); MCV 92.3 fL (80.0-100.0); MEAN PLATELET VOLUME 9.5 fL (7.4-10.4); MONOCYTES 6.8 % (2-11); NEUTROPHILS 58.4 % (40-80); PLATELET COUNT 206 10x3/uL (130-400); RBC 3.89 10x6/uL (4.00-5.40); RDW 12.8 % (11.5-14.5); WBC 5.5 10x3/uL (4.8-10.8)
[2019-09-28 08:34] LABS: APTT 27.3 SECONDS (22.8-39.4); INR 0.89 (0.85-1.17)
[2019-09-28 08:47] LABS: CALC OSMOLALITY 280 mosm/kg (275-300); CALCIUM 8.6 mg/dL (8.5-10.1); CARBON DIOXIDE 27.1 mmol/L (21.0-32.0); CHLORIDE - SERUM 105 mmol/L (98-107); CREATININE - SERUM 0.9 mg/dL (0.6-1.3); GLUCOSE 99 mg/dL (74-106); POTASSIUM - SERUM 4.6 mmol/L (3.5-5.1); SODIUM 140 mmol/L (136-145); UREA NITROGEN 19 mg/dL (7-18); eGFR NON AFRICAN AMERICAN 64 mL/min (90-120)
[2019-09-28 09:01] LABS: ALBUMIN 3.2 g/dL (3.4-5.0); ALKALINE PHOSPHATASE 43 U/L (30-120); ALT (SGPT) 21 U/L (10-68); BILIRUBIN - TOTAL 0.26 mg/dL (0.2-1.3); CKMB 1.2 U/L (0.0-3.6); CREATINE KINASE 78 UL (21-215); MAGNESIUM - SERUM 1.8 mg/dL (1.8-2.4); PROTEIN - SERUM 6.9 g/dL (6.4-8.2)
[2019-09-28 09:02] LABS: TROPONIN-I < 0.017 ng/mL (0.000-0.060)
--- NOTE | 2019-09-28 09:45 | NUR ---
RECEIVED PT FROM ER VIA W/C AAOX4 RESP UNLABORED SKIN W/D TELEMETRY SHOWS SR RATE 67 LAC SALINE LOCK INTACT WITH OCCLUSSIVE DRSG NO REDNESS OR EDEMA AT SITE DENIES ANY NEEDS OR DISCOMFORT AT THIS TIME
[2019-09-28] MEDS ORDERED: VITAMIN B-122500 MCG PO (09:48)
[2019-09-28 10:39] VITALS: Ht 152.4 cm; Wt 68.2 kg
[2019-09-28 14:54] LABS: CREATINE KINASE 66 UL (21-215)
[2019-09-28 14:57] VITALS: BP 176/58
[2019-09-28 14:58] LABS: TROPONIN-I < 0.017 ng/mL (0.000-0.060)
[2019-09-28] MEDS ORDERED: PROCARDIA XL60 MG PO (15:27)
--- NOTE | 2019-09-28 15:50 | NUR ---
REVIEWED DISCHARGE INSTRUCTIONS WITH PT STATES UNDERSTANDING COPY GIVEN DCD SALINE LOCK TO LAC WITH IV CATHETER INTACT SITE FREE OF REDNESS OR EDEMA PT DISCHARGED HOME LEFT UNIT IN STABLE CONDITION WITH ALL PERSONAL BELONGINGS
--- NOTE | 2019-10-01 11:24 | HP ---
PATIENT: KATY BORREGO MEDICAL RECORD: [id number] ACCOUNT: [id number] LOCATION:[facility].2117 : 42 ADMISSION DATE: 09/28/19 PCP: KAYKAY GRIER MD HISTORY AND PHYSICAL EXAMINATION DATE OF ADMISSION: 09/28/2019 ADMITTING DIAGNOSES: 1. Angina. 2. Coronary artery disease. 3. Previous cardiac stenting. 4. Hypertension. 5. Hyperlipidemia. HISTORY OF PRESENT ILLNESS: Mrs. Borrego presents with chest pain and jaw pain. She has a history of coronary artery disease. Last cardiac stent was in February of 2016. She was previously on Norvasc as well as labetalol for blood pressure. Somehow the Norvasc has been stopped. She now presents with chest pain, systolic blood pressures in the 200 range. Her EKG is normal. PHYSICAL EXAMINATION: CONSTITUTIONAL/GENERAL APPEARANCE: Well nourished, well developed, appears stated age. EYES: Lids and conjunctivae noninjected. No discharge. No pallor. ENT: Lips within normal limit. No cyanosis. No pallor. NECK: Carotid arteries, bilateral normal upstroke. No bruits. No thrills. No jugular venous pressure or distention. CERVICAL LYMPH NODES: Nontender. Nonenlarged. THYROID: Not enlarged. No nodules. CARDIOVASCULAR: Precordial exam, nondisplaced. No heaves or pericardial thrills. Rate and rhythm, regular. Heart sounds, normal S1, normal S2. No S3, no gallop, no rub. Systolic murmur, not heard. Diastolic murmur, not heard. RESPIRATORY: Respiratory effort, unlabored. Normal curvature. No thoracic deformity. No chest wall tenderness. Percussion, resonant. Auscultation, clear. No wheezes, no rales, no rhonchi. ABDOMEN: Soft, nondistended, nontender. No abdominal pain, no vomiting and normal appetite. MUSCULOSKELETAL: No joint tenderness, normal gait, normal tone. SKIN: Warm and dry. OVERALL IMPRESSION: Chest pain with out of control hypertension, most likely secondary to the out of control hypertension and demand ischemia. We will admit, start her on Procardia-XL 60 in addition to the labetalol, given further labetalol as her heart rates in the 60s. Get a repeat troponin at 2:00 p.m. Further care depends upon the repeat troponin and further chest pain as well as blood pressure control. TRANSINT:[id number] Voice Confirmation ID: [id number] DOCUMENT ID: [id number] HISTORY AND PHYSICAL [id number] KATY BORREGO JEFFREY MD at 1124 CC: [id number] DICTATION DATE: 09/28/19 0906 SUPERVISOR FLOOR ASSEMBLY: 09/28/19 1041 DIS IN 09/28/19 [place] [id number] [place] [id number]
== END 2019-09-28 15:50 | disposition home or self-care (01) ==
LOC: OBSVTIME → D.ER 07:58 → D.OPS 07:58 → D.ER 08:48 → D.M2 08:48 → OBSVTIME 08:48 → D.ER 09:10 → EDSTATUS 10:24 → D.M2 15:50 → D.OPS 15:50
PROVIDERS: Family Medicine; ATTEND Internal Medicine Interventional Cardiology
DX: I25.119 Atherosclerotic heart disease of native coronary artery with unspecified angina pectoris (principal); I10 Essential (primary) hypertension; E78.5 Hyperlipidemia, unspecified